=== PATIENT | male | born 1985 | race Caucasian/White ===

== ENCOUNTER 2019-11-03 14:38 | Emergency (ER) | payer OTHER, SELFPAY ==
[2019-11-03 14:41] VITALS: BP 149/94; PULSE 94; RESP 18; TEMP 36.2; O2SAT 98; BMI 28.8
[2019-11-03 14:56] LABS: Bedside Glucose 86 mg/dL (70-110)
--- NOTE | 2019-11-03 14:56 | CT_ITS ---
STUDY: CT BRAIN WITHOUT CONTRAST REASON FOR EXAM: Male, 34 years old. Unresponsive, altered mental status, RADIATION DOSAGE (If Supplied By Facility): CTDIvol = ( 44.99 ) mGy, DLP = ( 796.11 ) mGycm TECHNIQUE: Transaxial CT imaging of the brain was performed without administration of intravenous contrast material. Individualized dose optimization techniques were used for this CT. COMPARISON: No relevant priors. FINDINGS: Normal soft tissue structures. Normal calvarium. Normal size ventricles and extra-axial spaces for the patient''s age. Normal white matter tracts of the cerebral hemispheres. Normal basal ganglia and thalami. Normal brainstem. Normal cerebellum. There is no intracranial hemorrhage. There are no findings of an acute ischemic infarction. Normal visualized paranasal sinuses. CT/Brain/Head without Contrast IMPRESSION: Normal unenhanced CT scan of the brain. Electronically Signed: Mk De La Garza MD at 16:09 EST , Service support ,
--- NOTE | 2019-11-03 14:57 | EKG12_ITS ---
Test Reason : UNRESPONSIVE Blood Pressure : / mmHG Vent. Rate : 086 BPM Atrial Rate : 086 BPM P-R Int : 134 ms QRS Dur : 082 ms QT Int : 366 ms P-R-T Axes : 078 078 061 degrees QTc Int : 437 ms Normal sinus rhythm Normal ECG Confirmed by HECTOR LAUREANO, ZAINAB ([id number]), apigee developer GINO BURKETT ([id number]) on 11/06/2019 10:26:01 AM Referred By: DC Confirmed By:ZAINAB YOUNG MD
--- NOTE | 2019-11-03 15:00 | CT_ITS ---
STUDY: CT CERVICAL SPINE WITHOUT CONTRAST REASON FOR EXAM: Male, 34 years old. Unresponsive, altered mental status, found down at work-unknown amount of time RADIATION DOSAGE (If Supplied By Facility): CTDIvol = ( 20.84 ) mGy, DLP = ( 428.01 ) mGycm TECHNIQUE: High resolution transaxial imaging was performed without contrast material. Sagittal and coronal images were reconstructed. Individualized dose optimization techniques were used for this CT. COMPARISON: None FINDINGS: Normal craniovertebral junction. Normal anterior atlantoaxial articulation. Normal odontoid process. There is an exaggerated cervical lordosis. Normal vertebral bodies and posterior osseous elements. C2-3: Normal endplates. Normal disc height and morphology. Normal central canal and intervertebral neuroforamina. C3-4: Normal endplates. Normal disc height and morphology. Normal central canal and intervertebral neuroforamina. C4-5: Normal endplates. Normal disc height and morphology. Normal central canal and intervertebral neuroforamina. C5-6: Normal endplates. Normal disc height and morphology. Normal central canal and intervertebral neuroforamina. C6-7: Normal endplates. Normal disc height and morphology. Normal central canal and intervertebral neuroforamina. C7-T1: Normal endplates. Normal disc height and morphology. Normal central canal and intervertebral neuroforamina. Normal visualized soft tissue structures. CT/Spine Cervical without Contras IMPRESSION: Normal unenhanced CT examination of the cervical spine. Electronically Signed: Mk De La Garza MD at 16:13 EST , Service support ,
--- NOTE | 2019-11-03 15:04 | NURSING ---
NO OLD EKGS
--- NOTE | 2019-11-03 15:05 | RAD_ITS ---
STUDY: X-RAY CHEST REASON FOR EXAM: Male, 34 years old. Patient found unresponsive, unable to follow instructions during x-ray TECHNIQUE: Single AP portable view of the chest. COMPARISON: None. FINDINGS: Hyperinflation. The lungs are clear. There is no demonstrated pleural abnormality. Normal size heart. Normal mediastinum and shoaib. Normal visualized pulmonary arteries. Normal visualized aortic arch and descending thoracic aorta. Normal visualized thoracic spine. Normal visualized ribs, clavicles, and shoulders. There is no demonstrated abnormality of the visualized soft tissue structures of the upper abdomen. RAD/Chest 1 View (Portable) IMPRESSION: Normal x-ray examination of the chest. Electronically Signed: Nahid Guillen, at 15:18 EST , Service support ,
--- NOTE | 2019-11-03 15:06 | ED.VISSUMM ---
- ER Visit Summary Date of Service: 11/03/19 Chief Complaint: Altered mental status History of Present Illness: The patient is a 34 M who presents from work with a coworker. I am unable to obtain history from the patient based on his medical condition. Coworker says that he had a busy day yesterday. He seemed slightly confused this morning but nothing concerning. 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 He seemed altered and so his coworker called 911. He has no known history of this. He had not been complaining of anything today. He has not had any recent illnesses. He does have a history of diabetes, but the coworker does not know any other medical history. He does not think that he uses drugs. No known history of seizures. No known exposures to chemicals or environmental factors in the tire shed. No known trauma. Physical Examination: Afebrile and vital signs unremarkable. Patient is lying supine with his eyes open, GCS 4 +2 +5. Head and neck atraumatic and nontender. HEENT exam unremarkable. Visual ricks intact. Airway intact. Lungs clear. Heart regular. Abdomen soft. Back nontender. Extremities atraumatic, nontender, neurovascular intact. Patient only mumbles and cannot provide any additional history. He is not following any commands. Normal Babinski. Negative clonus. No rigidity. No tonic clonic activity. Test Results: EKG, imaging, labs, urine pending. Bedside glucose is in the 80s. Emergency Department Course and Treatment: Patient was seen upon arrival. Placed on a monitor. IV access and Da Silva placed. He was treated with a fluid bolus. We will check for causes of his altered mental status including EKG, labs, urine, imaging. Will monitor for any changes which may point us to an underlying cause. EKG showed sinus rhythm at a rate of 86. Chest x-ray normal. CT brain and cervical spine normal and normal. CBC normal. Metabolic panel normal. Coags normal. Urinalysis normal. Troponin normal. Lactate 2.5. TSH normal. ABG normal. Cultures pending. Talk screen negative. Alcohol negative. Work-up, besides the lactate of 2.5, was unremarkable. Patient became more and more alert. He was oriented x3. GCS 15. He said that he has no history of diabetes. He says he has a history of depression. He had similar episodes in the past, but never this bad. Denies any history of seizure or stroke. It sounds like his symptoms may be related to a psychiatric issue. He reports increasing depression symptoms. He is not suicidal or homicidal. He does have a gun in the home. Patient treated with additional IV fluids and will recheck lactate. Patient was discussed for transfer to [place] as he has been admitted there 3 or 4 times in the past. Dr. Miles was concerned that the patient should be seen by neuro. We have tele-neuro at this facility but no capacity for EEG. He also do not have psychiatry at this facility. We will transfer the patient to [facility] where he can be addressed by both neurology and psychiatry. Treatment Plan: As above Disposition: Transfer to [facility] Impression: 1. Altered mental status 2. Mood disorder 3. Elevated lactate This note was generated with [employer] dictation software. It may contain incorrect words, spelling, and punctuation that were not noted in review of the chart prior to signing ED Disposition - Plan for ED Patient: Referrals: Care Physician,No Primary [Primary Care Provider] -
[2019-11-03 15:13] LABS: Bacteria 0 SEEN /hpf (None Seen); Mucous, Urine 0 SEEN /hpf (<or=2+); Squamous Epithelial Cells - UA 0 SEEN /hpf (0-5); White Blood Cells 0 SEEN /hpf (0-5)
[2019-11-03 15:16] LABS: Absolute Lymphocyte Count 1.49 X10^3/uL (0.83-4.51); Absolute Neutrophil Count 4.5 X10^3/uL (2.0-7.7); Basophil# 0.05 X10^3/uL; Basophil% 0.7 % (0-1); Eosinophil# 0.07 X10^3/uL; Hematocrit 49.4 % (40-54); Hemoglobin 16.5 g/dL (13.0-16.5); Lymphocyte # 1.49 X10^3/ul (4.0); Lymphocyte % 21.9 % (19-41); Mean Corp Hgb Conc 33.4 g/dL (32-36); Mean Corpuscular Hgb 30.2 pg (27.0-32.0); Mean Corpuscular Volume 90.3 fL (80-94); Monocyte# 0.67 X10^3/uL; Monocyte% 9.9 % (0-10); NRBC Flagged by Analyzer 0 % (0-5); Neutrophil # 4.49 X10^3/uL (2.7-7.7); Neutrophil % 66.2 % (47-70); Platelet Count 179 K/mm3 (150-450); RBC Distribution Width CV 12.4 % (11.6-14.6); RBC Distribution Width SD 40.7 fl (35.1-43.9); Red Blood Count 5.47 M/mm3 (4.6-6.2); White Blood Count 6.8 K/mm3 (4.4-11.0)
[2019-11-03 15:19] LABS: Color, Urine Yellow (Yellow); Glucose, Dipstick Normal (Normal); Ketone-Dipstick Negative (Negative); Leukocyte Esterase-Dipstick Negative /ul (Negative); Nitrite-Dipstick Negative (Negative); Occult Blood-Urine Negative /ul (Negative); Protein-Dipstick Negative (Negative); Specific Gravity, Urine 1.015 (1.002-1.030); Urine Bilirubin Dipstick Negative (Negative); Urine Clarity Clear (Clear); Urine Urobilinogen Normal (Normal)
[2019-11-03 15:24] LABS: International Normalized Ratio 1.1; Partial Thromboplast Time 29.4 Seconds (24.1-36.2); Prothrombin Time (Protime)PT. 13.7 SECONDS (11.7-14.9)
[2019-11-03 15:33] LABS: Red Blood Cells-Urine 0-5 SEEN /hpf (0-5)
[2019-11-03] MEDS: 0.9% Normal Saline 1,000 ML 1000 ML IV (15:40)
[2019-11-03 15:46] LABS: Allen Test POS; Base Excess -1 mmol/L (-2 to +2); Bicarbonate 23.1 mmol/L (22-26); Blood Gas Specimen Type ART; O2 Delivery Device Room Air; PO2 109 mmHG (75-100); SITE R Radial; SO2 98 % (95-99); Time Given 1545; Total Carbon Dioxide 24 mmol/L; pCO2 35.2 mmHg (35-45); pH 7.42 (7.35-7.45)
[2019-11-03 15:46] LABS: ALB/GLOB Ratio 1.2 RATIO (0.9-2.4); AST(SGOT) 23 U/L (15-37); Alanine Aminotransfer ALT/SGPT 31 U/L (16-61); Albumin, Serum 3.8 g/dL (3.2-5.0); Alkaline Phosphatase 86 U/L (45-117); Anion Gap 3 (5-15); BUN 20 mg/dL (7-18); BUN/Creat Ratio 20.8 RATIO (10-20); Calcium,Total 9.2 mg/dL (8.5-10.1); Chloride 106 mmol/L (98-107); Creatinine, Serum 0.96 mg/dL (0.70-1.30); EST Glomerular Filtration Rate 95 mL/min (>60); Est Glom Filt Rate - Afr Amer 114 mL/min (>60); Estimated Creatinine Clearance 117.88 ml/min; Globulin 3.1 g/dL (2.2-4.2); Glucose 89 mg/dL (74-106); Potassium 4.3 mmol/L (3.5-5.1); Protein, Total 6.9 g/dL (6.4-8.2); Sodium Level 139 mmol/L (136-145); Thyroid Stim Hormone (TSH) 0.89 uIU/mL (0.358-3.74)
[2019-11-03 15:56] LABS: Lactic Acid 2.5 mmol/L (0.4-1.9)
[2019-11-03 16:21] LABS: Amphetamine Urine VISTA NEGATIVE (<1000 ng/mL); Barbiturate Urine VISTA NEGATIVE (< 200 ng/mL); Benzodiazepine Urine VISTA NEGATIVE (< 200 ng/mL); Cocaine Urine VISTA NEGATIVE (< 300 ng/mL); Ecstacy Urine VISTA NEGATIVE (< 500 ng/mL); Methadone Urine VISTA NEGATIVE (< 300 ng/mL); PCP Urine VISTA NEGATIVE (< 25 ng/mL); THC Urine VISTA NEGATIVE (< 50 ng/mL); Vista UDS pH Range 7
[2019-11-03 16:24] LABS: Alcohol, Blood (Medical)-Serum < 3.0 mg/dL
--- NOTE | 2019-11-03 16:25 | CM.ED ---
Social Work Consult: Mental Health Informant: Dr. Miller Chief Complaint: Patient stating to have fainted, fell down while at work today. Patient stating to have felt I was going to . Patient stating my brain malfunctioned. Patient stating to have been able to still think but to have been unable to talk or move patient body. Marital/Social History: Single, I am all alone. Living Situation: Patient stating to have a 12 year old son, Kyree Coreas that patient has custody of and lives with patient. This healthcare social worker inquiring where Kyree is at this time. Patient stating probably at home after getting off the bus. This healthcare social worker inquiring if Kyree is aware that patient is in the ER. Patient stating probably not. Patient stating that Kyree is alone at home most days from 3:45pm-5:30pm when patient gets home from work. This healthcare social worker inquiring if there is anyone that would be able to be with Kyree as patient is stating that Kyree's mother is no longer in patient's life. Patient stating that patient father, Rios is able to go be with Kyree. This healthcare social worker inquiring if Rios is aware that patient is in the ER. Patient stating I am not sure. Patient giving this socia worker permission to contact [place]. Telephone call placed to [place] updated on current situation. Rios planning to go bean picker machine operator Kyree and come to the ER. Rios responding in a calm and collected manner. Support/Resources: Patient identified muslim ([facility]) as a positive support and that patient attends weekly. Patient stating to also be in counseling x1 monthly at [facility]. Patient stating to have support from parents. History: None Education/Employment History: Patient a full-time employee at [employer]. Patient stating to have no comprehension or understanding concerns. Mental Health Treatment/History: Patient stating to have a history of depression and anxiety. Patient stating that counseling does not help. Patient denies any active medications. Patient stating to have a recent psychiatric stay at [facility] on 2018 from a mental break down. This healthcare social worker inquiring if this current episode was similar to patient mental break down. Patient stating no that time was despair of my life, I wanted to . Patient stating to have been in an inpatient psychiatric facility 3-4 times total in patients life. Abuse Issues: Denies Substance Abuse Hx: Patient denies any substance use/abuse. Risk to Self/Others: Patient denies any active suicidal thoughts at this time. Patient stating to have a history of suicide attempt 11-12 years ago where patient took a bunch of pills. This healthcare social worker exploring if patient has any firearms in the home. Patient stating to have a shot gun and bullets. Patient stating to have entertained the thought of completing suicide with the gun but not recently. Mental Status Exam: A&Ox3 Appearance/General Behavior: clean, calm, minimal eye contact. Mood/Affect: Depressed, bizarre. Communication Pattern: Responds to questions, slow speech pattern. Thought Process: Denies hallucination, delusions, or paranoid thoughts. Denies hearing any voices. Assessment: Met with patient in room. Introduced self as well as healthcare social worker role. Patient agreeable to meet with this healthcare social worker. Patient pausing often between answer and would take an extended period of time to respond. Broaching topic of whether or not patient has had any recent stressors and life changes. Patient denies any changes or stressors in life lately. Broached topic of patient mood within the past 2 weeks. Patient stating to be feeling down and hopeless. Patient stating to feel worthless and to be no good for anything. Patient stating to be sleeping well but that food intake as been diminished. Collaborating with Dr. Miller, recommending inpatient psychiatric placement vs. medical transfer for stability. Dr. Miller to make referral to [facility] for possible medical admission with psychiatric follow up. PLAN: Transfer. JEREMÍAS Morales
[2019-11-03 16:39] VITALS: BP 148/76; PULSE 87; RESP 18; O2SAT 100
[2019-11-03] MEDS: 0.9% Normal Saline 1,000 ML 999 ML IV (16:41)
--- NOTE | 2019-11-03 17:32 | NURSING ---
[facility] [address] NURSE TO NURSE [phone]
[2019-11-03 18:00] VITALS: BP 131/88; PULSE 97; RESP 20; O2SAT 99
[2019-11-03 18:43] LABS: Lactic Acid 0.6 mmol/L (0.4-1.9)
[2019-11-03 18:50] VITALS: RESP 18
[2019-11-03 19:24] LABS: Reflex Lactate? Y
== END 2019-11-03 18:54 | disposition short-term general hospital (02) ==
PROVIDERS: Emergency Provider Emergency Medicine
DX: R41.82 Altered mental status, unspecified (principal); F39 Unspecified mood [affective] disorder; F32.9 Major depressive disorder, single episode, unspecified; R79.89 Other specified abnormal findings of blood chemistry; Z79.899 Other long term (current) drug therapy
CPT/HCPCS: 36600; 51702; 70450; 71045; 72125; 80053; 80307; 80320; 81001; 82803; 82962; 83605; 84443; 84484; 85025; 85610; 85730; 87040; 87086; 93005; 96360; 96361; 99285; G0480